=== PATIENT | female | born 1975 | race American Indian/Alaskan Native ===

== ENCOUNTER 2017-05-04 18:48 | Emergency (ER) | payer OTHER ==
[2017-05-04 19:03] VITALS: O2SAT 100
[2017-05-04] MEDS ORDERED: Sodium Chloride 0.9% 1,000 ML IV ONE (19:36)
[2017-05-04] MEDS ORDERED: Iohexol 240 (50 ml) PO ONE (19:36)
[2017-05-04] MEDS ORDERED: Sodium Chloride 0.9% 1,000 ML ONE (20:04)
--- NOTE | 2017-05-04 20:04 | C.PDOC ---
History Of Present Illness 41 y/o female who presents to the ED complaining of lower abdominal pain for the past 3 days. Originally pain was left-sided but today moved to the RLQ. Feels nauseous, but no vomiting, change in appetite, blood in stool or urine, fever, dysuria, vaginal bleeding or discharge. PMD: Virginia Mares MD Time Seen by Provider: 05/04/17 19:30 Chief Complaint (Nursing): Abdominal Pain History Per: Patient History/Exam Limitations: no limitations Onset/Duration Of Symptoms: Days (x3) Current Symptoms Are (Timing): Still Present Location Of Pain/Discomfort: RLQ Associated Symptoms: Nausea Past Medical History Reviewed: Historical Data, Nursing Documentation, Vital Signs Vital Signs: Last Vital Signs Temp 98.9 F 05/04/17 23:55 Pulse 92 H 05/04/17 23:55 Resp 18 05/04/17 23:55 BP 134/78 05/04/17 23:55 Pulse Ox 100 05/04/17 23:55 - Medical History PMH: Diabetes Other PMH: Fibroids Family History: States: No Known Family Hx - Social History Hx Alcohol Use: Yes Hx Substance Use: No - Immunization History Hx Tetanus Toxoid Vaccination: Yes Hx Influenza Vaccination: Yes Hx Pneumococcal Vaccination: No Review Of Systems Except As Marked, All Systems Reviewed And Found Negative. Constitutional: Negative for: Fever Gastrointestinal: Positive for: Nausea, Abdominal Pain. Negative for: Vomiting , Hematochezia, Other (change in appetite) Genitourinary: Negative for: Dysuria, Hematuria, Vaginal Discharge, Vaginal Bleeding Physical Exam - Physical Exam Appears: Non-toxic, No Acute Distress Skin: Normal Color, Warm, Dry Head: Atraumatic, Normacephalic Eye(s): bilateral: Normal Inspection, PERRL, EOMI Oral Mucosa: Dry (mucus membranes) Neck: Normal ROM Chest: Symmetrical Cardiovascular: Rhythm Regular, No Murmur Respiratory: Normal Breath Sounds, No Accessory Muscle Use Gastrointestinal/Abdominal: Soft, Tenderness (Mild RLQ tenderness), Other (Firm uterus secondary to fibroids) Back: Normal Inspection Extremity: Bilateral: Atraumatic, Normal Color And Temperature, Normal ROM Neurological/Psych: Oriented x3, Normal Speech Gait: Steady ED Course And Treatment - Laboratory Results Result Diagrams: 05/04/17 20:01 05/04/17 20:01 O2 Sat by Pulse Oximetry: 100 (RA) Pulse Ox Interpretation: Normal - CT Scan/US CT Abdomen and Pelvis With Intravenous Contrast Other Rad Studies (CT/US): Read By Radiologist, Radiology Report Reviewed CT/US Interpretation: FINDINGS: Lower thorax: The bilateral lung bases are clear. ABDOMEN: Liver: No acute findings. Gallbladder and bile ducts: The gallbladder is decompressed. No calcified stones. No significant. intra- or extrahepatic biliary ductal dilation. Pancreas: Enhances homogeneously. No ductal dilation. No discrete mass. Spleen: No acute findings. Adrenals: No acute findings. Kidneys and ureters: No acute findings. No hydronephrosis or renal calculi. No discrete solid mass. PELVIS: Bladder: No acute findings. Reproductive: The uterus is markedly enlarged and nodular, likely containing multiple fibroids. The. uterus extends above the level of the umbilicus and there is heterogeneous in attenuation. The. bilateral ovaries are not separately delineated on the current examination. Appendix: The appendix is of normal caliber (series 3, image 110; series 601, image 56) . ABDOMEN and PELVIS : Stomach and bowel: No obstruction. No mucosal thickening. Peritoneum: No significant fluid collection. No free air. Lymph nodes: No pathologically enlarged lymph nodes. Vasculature: Unremarkable. Bones: No acute fracture. IMPRESSION: Significant enlargement of the uterus, above the level of the umbilicus with extensive nodularity. Pelvic ultrasound is recommended for confirmation. Medical Decision Making Medical Decision Making: Time: 19:36 Plan: --CMP --Lipase --CBC --POC urine --Urinalysis --sodium chloride IV 1000 ml at 1000 mls/hr --Pepcid 20 mg IV --Iohexol 50 ml PO --Zofran 4 mg IV --Pending CT Abdomen/Pelvis PO & IV contrast Disposition - Disposition Referrals: [facility] Cristo Mancera, [Non-Staff] - Disposition: HOME/ ROUTINE Disposition Time: 23:15 Condition: GOOD Additional Instructions: Thank you for letting us take care of you today. Your provider was Dr. Dominguez. You were treated for abdominal pain. The emergency medical care you received today was directed at your acute symptoms. If you were prescribed any medication, please fill it and take as directed. It may take several days for your symptoms to resolve. Return to the Emergency Department if your symptoms worsen, do not improve, or if you have any other problems. Please contact your doctor or call one of the physicians/clinics you have been referred to that are listed on the Patient Visit Information form that is included in your discharge packet. Bring any paperwork you were given at discharge with you along with any medications you are taking to your follow up visit. Our treatment cannot replace ongoing medical care by a primary care provider (PCP) outside of the emergency department. Thank you for allowing the [facility] team to be part of your care today. Follow up with your doctor in 2-3 days for re-evaluation and further treatment. Prescriptions: Ranitidine HCl [Zantac] 150 mg PO BID #20 tablet Instructions: Uterine Fibroids (ED), Acute Abdominal Pain (ED) Forms: [employer] (Yakut) - Clinical Impression Clinical Impression: acute abdominal pain Uterine fibroid - Scribe Statement The provider has reviewed the documentation as recorded by the Jodeeibmaryann White All medical record entries made by the Jodeeibe were at my direction and personally dictated by me. I have reviewed the chart and agree that the record accurately reflects my personal performance of the history, physical exam, medical decision making, and the department course for this patient. I have also personally directed, reviewed, and agree with the discharge instructions and disposition.
[2017-05-04] MEDS ORDERED: Iohexol 240 (50 ml) ONE (20:05)
[2017-05-04 20:06] LABS: HEMATOCRIT 29.4 % (34.0-47.0); MEAN CELL VOLUME 66.8 fL (81.0-99.0); MEAN CORPUSCULAR HEMOGLOBIN 20.9 pg (27.0-31.0); MEAN CORPUSCULAR HGB CONC 31.3 g/dL (33.0-37.0); MEAN PLATELET VOLUME 8.5 fL (7.2-11.7); PLATELET COUNT 221 K/uL (130-400); RED CELL DISTRIBUTION WIDTH 21.4 % (11.5-14.5); WHITE BLOOD COUNT 10.6 K/uL (4.8-10.8)
[2017-05-04 20:12] LABS: RBC URINE < 1 /hpf (0-3); URINE BILIRUBIN NEGATIVE (NEGATIVE); URINE BLOOD 3+ (NEGATIVE); URINE COLOR Yellow (YELLOW); URINE GLUCOSE (UA) NORMAL (Normal); URINE KETONE TRACE mg/dL (NEGATIVE); URINE LEUKOCYTE ESTERASE NEG Leu/uL (Negative); URINE PROTEIN NEGATIVE (NEGATIVE); WBC URINE 1 /hpf (0-5)
[2017-05-04 20:15] LABS: CHLORIDE 101 mmol/L (98-107)
[2017-05-04 20:16] LABS: POTASSIUM 3.8 mmol/L (3.6-5.2); SODIUM 138 mmol/L (132-148)
[2017-05-04 20:18] LABS: BILIRUBIN,TOTAL 0.8 mg/dL (0.2-1.3); CARBON DIOXIDE 22 mmol/L (22-30); GFR AFRICAN-AMERICAN > 60
[2017-05-04 20:19] LABS: ALB/GLOB RATIO 0.9 (1.0-2.1); ALKALINE PHOSPHATASE 63 U/L (38-126); ALT/SGPT 24 U/L (9-52); AST/SGOT 26 U/L (14-36); BLOOD UREA NITROGEN 11 mg/dL (7-17); GLUCOSE,RANDOM 128 mg/dL (65-105); TOTAL PROTEIN 7.6 g/dL (6.3-8.3)
[2017-05-04 20:53] LABS: MONO # 0.2 K/uL (0.0-0.8)
[2017-05-04 20:56] LABS: EOSINOPHIL 1 % (0-4); NEUTROPHIL 80 % (50-75); TOTAL CELLS COUNTED 100
[2017-05-04] MEDS ORDERED: Iodixanol 320 MG/ML 100 ML BOTTLE IV ONE (21:09)
--- NOTE | 2017-05-04 23:20 | CT ---
EXAM: CT Abdomen and Pelvis With Intravenous Contrast CLINICAL HISTORY: 41 years old, female; Pain; Abdominal pain; Generalized; Additional info: Lower abdominal pain r>l TECHNIQUE: Axial computed tomography images of the abdomen and pelvis with intravenous contrast. All CT scans at this facility use one or more dose reduction techniques, viz.: automated exposure control; ma/kV adjustment per patient size (including targeted exams where dose is matched to indication; i.e. head); or iterative reconstruction technique. Coronal and sagittal reformatted images were created and reviewed. CONTRAST: 100 mL of VISIPAQUE administered intravenously. COMPARISON: No relevant prior studies available. FINDINGS: Lower thorax: The bilateral lung bases are clear. ABDOMEN: Liver: No acute findings. Gallbladder and bile ducts: The gallbladder is decompressed. No calcified stones. No significant intra- or extrahepatic biliary ductal dilation. Pancreas: Enhances homogeneously. No ductal dilation. No discrete mass. Spleen: No acute findings. Adrenals: No acute findings. Kidneys and ureters: No acute findings. No hydronephrosis or renal calculi. No discrete solid mass. PELVIS: Bladder: No acute findings. Reproductive: The uterus is markedly enlarged and nodular, likely containing multiple fibroids. The uterus extends above the level of the umbilicus and there is heterogeneous in attenuation. The bilateral ovaries are not separately delineated on the current examination. Appendix: The appendix is of normal caliber (series 3, image 110; series 601, image 56) . ABDOMEN and PELVIS: Stomach and bowel: No obstruction. No mucosal thickening. Peritoneum: No significant fluid collection. No free air. Lymph nodes: No pathologically enlarged lymph nodes. Vasculature: Unremarkable. Bones: No acute fracture. IMPRESSION: Significant enlargement of the uterus, above the level of the umbilicus with extensive nodularity. Pelvic ultrasound is recommended for confirmation.
[2017-05-04 23:55] VITALS: BP 134/78; PULSE 92; RESP 18; TEMP 98.9
== END 2017-05-04 23:45 | disposition home or self-care (01) ==
LOC: C.ER 18:48
DX: D25.9 Leiomyoma of uterus, unspecified (principal); R10.31 Right lower quadrant pain
CPT/HCPCS: 74177; 80053; 81001; 83690; 85025; 96361; 96374; 96375; 99284; J2405; J7040; Q9966; Q9967